=== PATIENT | female | born 1955 | race Caucasian/White ===

== ENCOUNTER 2019-01-01 02:47 | Emergency (ER) | payer SELFPAY ==
[2019-01-01 03:19] LABS: Absolute Lymphocytes (CBC) 1.3 K/uL (0.7-4.9); Absolute Monocytes 0.6 K/uL (0.1-1.3); Absolute Neutrophil 5.5 K/uL (1.8-8.0); Basophils % 0.5 % (0-1.3); Eosinophils % 3.7 % (0-4.4); Hematocrit 38.1 % (36.0-45.0); MPV 8.8 fL (7.6-11.3); Monocytes % 7.3 % (3.3-12.3); RBC Red Blood Cell Count 4.18 M/uL (3.86-4.86)
[2019-01-01] MEDS ORDERED: LIDOCAINE VISCOUS 2% SOLN 15 ML UDC ONE (03:23)
[2019-01-01] MEDS ORDERED: MAGNE/ALUM HYDROXD 30 ML UCUP ONE (03:23)
[2019-01-01 03:46] LABS: Albumin 3.6 g/dL (3.4-5.0); Bilirubin Direct 0.3 mg/dL (0-0.2); Bilirubin Total 0.5 mg/dL (0.2-1.0); Potassium 3.7 mmol/L (3.5-5.1); Protein, Total 7.1 g/dL (6.4-8.2)
[2019-01-01] MEDS ORDERED: NA CHLORIDE 0.9% 1,000 ML ONE (04:38)
[2019-01-01] MEDS ORDERED: PIPER/TAZO/NS 3.375gm 3.375 GM/100 ML BAG ONE (04:45)
--- NOTE | 2019-01-01 07:28 | ER ---
Nurse's Notes [facility] Name: Destiny Gant Age: 63 yrs Sex: Female : 1955 Arrival Date: 01/01/2019 Time: 02:49 Bed 5 Private MD: Diagnosis: Abdominal and pelvic pain Presentation: 01/01 02:51 Presenting complaint: Patient states: epigastric pain that radiates to upper back since tl2 yesterday morning. Reports two episodes of vomiting SHAPER HAND, denies nausea at this time. Transition of care: patient was not received from another setting of care. Onset of symptoms was December 30, 2018. Risk Assessment: Do you want to hurt yourself or someone else? Patient reports no desire to harm self or others. Initial Sepsis Screen: Does the patient meet any 2 criteria? No. Patient's initial sepsis screen is negative. Does the patient have a suspected source of infection? No. Patient's initial sepsis screen is negative. Care prior to arrival: None. 02:51 Method Of Arrival: EMS: [facility] tl2 02:51 Acuity: PHILIP 3 tl2 Triage Assessment: 02:53 General: Appears in no apparent distress. uncomfortable, Behavior is calm, cooperative, tl2 appropriate for age. Pain: Complains of pain in epigastric area, right upper quadrant and left upper quadrant Pain radiates to left subscapular area and right subscapular area Pain currently is 10 out of 10 on a pain scale. Quality of pain is described as stabbing, Is continuous. Neuro: Level of Consciousness is awake, alert, obeys commands, Oriented to person, place, time, situation. Cardiovascular: Denies chest pain. Respiratory: Airway is patent Respiratory effort is even, unlabored, Respiratory pattern is regular, symmetrical. GI: Abdomen is non-distended, Reports vomiting, Patient currently denies diarrhea, nausea. : No signs and/or symptoms were reported regarding the genitourinary system. Derm: Skin is pink, warm \T\ dry. Historical: - Allergies: 02:53 No Known Allergies; tl2 - Home Meds: 02:53 clonazepam 1 mg oral tab 1 tab 2 times per day [Active]; tl2 - PMHx: 02:53 Depression; tl2 - PSHx: 02:53 Hysterectomy; Tubal ligation; tl2 - Immunization history:: Adult Immunizations up to date. - Social history:: Smoking status: Patient/guardian denies using tobacco. - Ebola Screening: : No symptoms or risks identified at this time. Screenin:56 Abuse screen: Denies threats or abuse. Nutritional screening: No deficits noted. tl2 Tuberculosis screening: No symptoms or risk factors identified. Fall Risk None identified. Assessment: 02:56 General: see triage assessment. tl2 03:30 Reassessment: Patient appears in no apparent distress at this time. Patient and/or tl2 family updated on plan of care and expected duration. Pain level reassessed. Patient is alert, oriented x 3, equal unlabored respirations, skin warm/dry/pink. 04:48 Reassessment: Patient appears in no apparent distress at this time. Patient and/or tl2 family updated on plan of care and expected duration. Pain level reassessed. Patient is alert, oriented x 3, equal unlabored respirations, skin warm/dry/pink. pt returned from CT, awaiting results. Pt resting comfortably, no questions or concerns at this time. Fluids and antibiotic infusing. 05:10 Reassessment: Patient appears in no apparent distress at this time. Patient and/or cc3 family updated on plan of care and expected duration. Pain level reassessed. Patient is alert, oriented x 3, equal unlabored respirations, skin warm/dry/pink. Received this female patient from [facility] Gal[facility] as a case of abdominal pain, with IV cannula gauge 22 with ongoing IV fluid of NS 1 liter bolus and IV antibiotic of Zosyn 3.375 grams infusing well. 05:10 GI: Bowel sounds present X 4 quads. Abd is soft X 4 quads Abdomen is tender to cc3 palpation in epigastric area. 05:45 Reassessment: Dr. Dalal at bedside assessing the patient. cc3 06:19 Reassessment: Patient appears in no apparent distress at this time. Patient and/or cc3 family updated on plan of care and expected duration. Pain level reassessed. Patient is alert, oriented x 3, equal unlabored respirations, skin warm/dry/pink. 06:55 Reassessment: Patient appears in no apparent distress at this time. Patient and/or cc3 family updated on plan of care and expected duration. Pain level reassessed. Patient is alert, oriented x 3, equal unlabored respirations, skin warm/dry/pink. Troponin taken and sent to lab as ordered. 07:36 Reassessment: Patient appears in no apparent distress at this time. Patient and/or ph family updated on plan of care and expected duration. Pain level reassessed. Patient is alert, oriented x 3, equal unlabored respirations, skin warm/dry/pink. US at bedside for study of abdomen, pt tolerating well, report called to Lesly RENDON at [facility], awaiting US results and EMS for transport. 08:44 Reassessment: Patient appears in no apparent distress at this time. Patient and/or ph family updated on plan of care and expected duration. Pain level reassessed. Patient is alert, oriented x 3, equal unlabored respirations, skin warm/dry/pink. Pt resting quietly, denies nausea and rates pain 3/10 after IV medications, daughter at bedside, awaiting EMS for transfer. 09:19 Reassessment: Patient appears in no apparent distress at this time. Patient and/or ph family updated on plan of care and expected duration. Pain level reassessed. Patient is alert, oriented x 3, equal unlabored respirations, skin warm/dry/pink. Report given to [facility], pt transferred to [facility]. Vital Signs: 02:53 BP 157 / 91; Pulse 82; Resp 18; Temp 98.5(O); Pulse Ox 99% on R/A; Weight 78.47 kg; tl2 Height 5 ft. 6 in. (167.64 cm); Pain 10/10; 04:32 BP 136 / 87; Pulse 76; Resp 18; Pulse Ox 99% on R/A; tl2 05:10 BP 149 / 94; Pulse 84; Resp 17 S; Pulse Ox 100% on R/A; cc3 05:40 BP 138 / 74; Pulse 75; Resp 17 S; Pulse Ox 100% on R/A; cc3 06:06 BP 141 / 86; Pulse 73; Resp 18 S; Pulse Ox 100% on R/A; cc3 07:17 BP 120 / 74; Pulse 69; Resp 18; Temp 98.2; Pulse Ox 97% on R/A; ph 08:43 BP 124 / 65; Pulse 75; Resp 18; Pulse Ox 99% on R/A; ph 09:19 BP 123 / 72; Pulse 71; Resp 18; Temp 98.0; Pulse Ox 99% on R/A; ph 02:53 Body Mass Index 27.92 (78.47 kg, 167.64 cm) tl2 ED Course: 02:49 Patient arrived in ED. tl2 02:50 Liam Rader MD is Attending Physician. ps1 02:52 Triage completed. tl2 02:53 Arm band placed on right wrist. tl2 02:56 Patient has correct armband on for positive identification. Bed in low position. Call tl2 light in reach. Side rails up X 1. 03:05 eLonor Montaño, JUSTICE is Primary Nurse. tl2 03:05 Inserted saline lock: 22 gauge in right antecubital area, using aseptic technique. tl2 Blood collected. 03:20 Radiology exam delayed due to lab results not completed at this time. (BUN/Creatinine). kw1 03:40 Radiology exam delayed due to lab results not completed at this time. (BUN/Creatinine). eh 04:30 Lactate Sent. tl2 04:34 CT Abd/Pelvis - W/Contrast In Process Unspecified. EDMS 07:00 Report given to [facility]ICE Day and [facility] Fuentes. cc3 07:28 Ultrasound completed. Patient tolerated well. sg3 08:43 No provider procedures requiring assistance completed. Patient transferred, IV remains ph in place. Administered Medications: 03:14 Drug: GI Cocktail without - (Maalox Suspension 30 ml, Lidocaine Liquid 2 % 15 tl2 ml) Route: PO; 04:00 Follow up: Response: No adverse reaction; Pain is unchanged, physician notified tl2 04:30 Drug: NS 0.9% 1000 ml Route: IV; Rate: 1 bolus; Site: right antecubital; tl2 05:45 Follow up: Response: No adverse reaction; IV Status: Completed infusion; IV Intake: cc3 1000ml 04:45 Drug: Zosyn 3.375 grams Route: IVPB; Infused Over: 60 mins; Site: right antecubital; tl2 05:42 Follow up: Response: No adverse reaction; IV Status: Completed infusion; IV Intake: cc3 100ml 08:20 Drug: morphine 4 mg Route: IVP; Site: right antecubital; ph 08:40 Follow up: Response: No adverse reaction ph 08:20 Drug: Zofran 4 mg Route: IVP; Site: right antecubital; ph 08:40 Follow up: Response: No adverse reaction ph Intake: 05:42 IV: 100ml; Total: 100ml. cc3 05:45 IV: 1000ml; Total: 1100ml. cc3 Outcome: 07:27 ER care complete, transfer ordered by . kdr 09:19 Transferred by ground EMS . to [facility], Transfer form ph completed. X-rays sent w/ patient. 09:19 Condition: stable 09:19 Instructed on the need for transfer. 09:20 Patient left the ED. ph Signatures: Dispatcher [employer] EDMS Jayden Segura MD MD kdr Hagler, Ervin eh Hall, Patricia, RN RN Leonor Whitley RN RN tl2 Liam Rader MD MD [facility] Sharron Wong1 Claudia Arthur 3 Radha Boland cc3 Corrections: (The following items were deleted from the chart) 05:58 05:10 Reassessment: Patient appears in no apparent distress at this time. Patient cc3 and/or family updated on plan of care and expected duration. Pain level reassessed. Patient is alert, oriented x 3, equal unlabored respirations, skin warm/dry/pink. Received this female patient from [facility] as a case of abdominal pain, with IV cannula gauge cc3 06:03 05:10 Reassessment: Patient appears in no apparent distress at this time. Patient cc3 and/or family updated on plan of care and expected duration. Pain level reassessed. Patient is alert, oriented x 3, equal unlabored respirations, skin warm/dry/pink. Received this female patient from [facility] as a case of abdominal pain, with IV cannula gauge 22 with ongoing IV fluid of NS 1 liter bolus and IV antibiotic of Tazocin 3.75 g infusing well. cc3
--- NOTE | 2019-01-01 07:28 | EDPHYS ---
Physician Documentation [facility] Name: Destiny Gant Age: 63 yrs Sex: Female : 1955 Arrival Date: 01/01/2019 Time: 02:49 Bed 5 Private MD: ED Physician Liam Rader HPI: 01/01 03:20 This 63 yrs old Female presents to ER via EMS with complaints of Abdominal ps1 Pain. 03:20 patient BIBEMS for epigastric abdominal pain that radiates to her back. Paitent rates ps1 pain as severe. No remitting factors. Onset 2 days ago. Not associated with food. No chest pain. No diaphoresis. No history of same. Hx of depression. . Historical: - Allergies: 02:53 No Known Allergies; tl2 - Home Meds: 02:53 clonazepam 1 mg oral tab 1 tab 2 times per day [Active]; tl2 - PMHx: 02:53 Depression; tl2 - PSHx: 02:53 Hysterectomy; Tubal ligation; tl2 - Immunization history:: Adult Immunizations up to date. - Social history:: Smoking status: Patient/guardian denies using tobacco. - Ebola Screening: : No symptoms or risks identified at this time. ROS: 03:20 Constitutional: Negative for fever, chills, and weight loss, Eyes: Negative for injury, ps1 pain, redness, and discharge, Cardiovascular: Negative for chest pain, palpitations, and edema, Respiratory: Negative for shortness of breath, cough, wheezing, and pleuritic chest pain, : Negative for injury, bleeding, discharge, and swelling, MS/Extremity: Negative for injury and deformity, Skin: Negative for injury, rash, and discoloration, Neuro: Negative for headache, weakness, numbness, tingling, and seizure. 03:20 Abdomen/GI: Positive for abdominal pain, nausea. Exam: 03:20 Constitutional: This is a well developed, well nourished patient who is awake, alert, ps1 and in no acute distress. Head/Face: Normocephalic, atraumatic. Eyes: Pupils equal round and reactive to light, extra-ocular motions intact. Lids and lashes normal. Conjunctiva and sclera are non-icteric and not injected. Chest/axilla: Normal chest wall appearance and motion. Nontender with no deformity. No lesions are appreciated. Cardiovascular: Regular rate and rhythm. No gallops, murmurs, or rubs. Normal PMI, no JVD. No pulse deficits. Respiratory: Lungs have equal breath sounds bilaterally, clear to auscultation and percussion. No rales, rhonchi or wheezes noted. No increased work of breathing, no retractions or nasal flaring. Skin: Warm, dry with normal turgor. Normal color with no rashes, no lesions, and no evidence of cellulitis. MS/ Extremity: Pulses equal, no cyanosis. Neurovascular intact. Full, normal range of motion. Neuro: Awake and alert, GCS 15, oriented to person, place, time, and situation. Cranial nerves II-XII grossly intact. Sensory grossly intact. Psych: Awake, alert, with orientation to person, place and time. Behavior, mood, and affect are within normal limits. 03:20 Abdomen/GI: Inspection: abdomen appears normal, Bowel sounds: normal, Palpation: moderate abdominal tenderness, in the epigastric area. Vital Signs: 02:53 BP 157 / 91; Pulse 82; Resp 18; Temp 98.5(O); Pulse Ox 99% on R/A; Weight 78.47 kg; tl2 Height 5 ft. 6 in. (167.64 cm); Pain 10/10; 04:32 BP 136 / 87; Pulse 76; Resp 18; Pulse Ox 99% on R/A; tl2 05:10 BP 149 / 94; Pulse 84; Resp 17 S; Pulse Ox 100% on R/A; cc3 05:40 BP 138 / 74; Pulse 75; Resp 17 S; Pulse Ox 100% on R/A; cc3 06:06 BP 141 / 86; Pulse 73; Resp 18 S; Pulse Ox 100% on R/A; cc3 07:17 BP 120 / 74; Pulse 69; Resp 18; Temp 98.2; Pulse Ox 97% on R/A; ph 08:43 BP 124 / 65; Pulse 75; Resp 18; Pulse Ox 99% on R/A; ph 09:19 BP 123 / 72; Pulse 71; Resp 18; Temp 98.0; Pulse Ox 99% on R/A; ph 02:53 Body Mass Index 27.92 (78.47 kg, 167.64 cm) tl2 MDM: 03:27 Patient medically screened. ps1 06:24 Data reviewed: vital signs, nurses notes, lab test result(s), radiologic studies, CT ps1 scan, and as a result, I will transfer patient for ERCP and cholecystectomy. . 01/01 02:50 Order name: Basic Metabolic Panel; Complete Time: 04:06 tl2 01/01 02:50 Order name: CBC with Diff; Complete Time: 04:06 tl2 01/01 02:50 Order name: Creatinine for Radiology; Complete Time: 04:06 tl2 01/01 02:50 Order name: Hepatic Function; Complete Time: 04:06 tl2 01/01 02:50 Order name: Lipase; Complete Time: 04:06 tl2 01/01 04:12 Order name: Lactate ps1 01/01 02:50 Order name: CT Abd/Pelvis - W/Contrast tl2 01/01 04:12 Order name: Lactate; Complete Time: 06:16 EDMS 01/01 06:03 Order name: Abdomen Exam Limited; Complete Time: 15:17 EDMS 01/01 06:46 Order name: Troponin (emerg Dept Use Only) ps1 01/01 07:37 Order name: Troponin (Emerg Dept Use Only); Complete Time: 07:58 EDMS 01/01 02:50 Order name: IV Saline Lock; Complete Time: 03:06 tl2 01/01 02:50 Order name: Labs collected and sent; Complete Time: 03:06 tl2 01/01 03:25 Order name: EKG - Nurse/Tech; Complete Time: 03:36 ps1 01/01 04:10 Order name: NPO; Complete Time: 04:30 ps1 EC:36 Rate is 72 beats/min. Rhythm is regular. QRS [place] is Normal. [place] interval is normal. QRS ps1 interval is normal. QT interval is normal. No Q waves. T waves are Inverted in leads V2, V3, V4, V5. Clinical impression: NSR w/ Non-specific ST/T Changes. Interpreted by me. Administered Medications: 03:14 Drug: GI Cocktail without - (Maalox Suspension 30 ml, Lidocaine Liquid 2 % 15 tl2 ml) Route: PO; 04:00 Follow up: Response: No adverse reaction; Pain is unchanged, physician notified tl2 04:30 Drug: NS 0.9% 1000 ml Route: IV; Rate: 1 bolus; Site: right antecubital; tl2 05:45 Follow up: Response: No adverse reaction; IV Status: Completed infusion; IV Intake: cc3 1000ml 04:45 Drug: Zosyn 3.375 grams Route: IVPB; Infused Over: 60 mins; Site: right antecubital; tl2 05:42 Follow up: Response: No adverse reaction; IV Status: Completed infusion; IV Intake: cc3 100ml 08:20 Drug: morphine 4 mg Route: IVP; Site: right antecubital; ph 08:40 Follow up: Response: No adverse reaction ph 08:20 Drug: Zofran 4 mg Route: IVP; Site: right antecubital; ph 08:40 Follow up: Response: No adverse reaction ph Disposition: 01/01/19 07:27 Transfer ordered to [facility]. Diagnosis is Abdominal and pelvic pain. - Reason for transfer: Higher level of care. - Accepting physician is Dr. Andres. - Condition is Fair. - Problem is new. - Symptoms have improved. Signatures: Dispatcher [employer] EDMS Jayden Segura MD MD kdr Gina Prater RN RN ph Leonor Montaño RN RN tl2 Liam Rader MD MD [facility] Radha Boland cc3 Corrections: (The following items were deleted from the chart) 09:20 07:27 01/01/2019 07:27 Transfer ordered to [facility]. Diagnosis is ph Abdominal and pelvic pain. Reason for transfer: Higher level of care. Accepting physician is Dr. Andres. Condition is Fair. Problem is new. Symptoms have improved. kdr
--- NOTE | 2019-01-01 08:11 | RAD REPORT ---
EXAM DESCRIPTION: US - Abdomen Exam Limited - 01/01/2019 8:01 am CLINICAL HISTORY: Abdominal pain, right upper quadrant pain COMPARISON: CT study same date FINDINGS: Multiple variably sized mobile gallstones are identified. Gallbladder wall is mildly thick ened. No pericholecystic fluid. No common duct stone or biliary tree dilatation identified. IMPRESSION: Multi stone cholelithiasis with gallbladder wall thickening. No biliary tree abnormality.
[2019-01-01] MEDS ORDERED: MORPHINE 4 MG/ML SYR ONE ×2 (08:24→14:17)
[2019-01-01] MEDS ORDERED: ONDANSETRON 4 MG/2 ML VIAL ONE (08:24)
--- NOTE | 2019-01-03 07:50 | EKG ---
Test Date: 2019-01-01 Test Time: 03:36:13 Front End Software Engineer: KIMBERLY MEASUREMENT RESULTS: Intervals: Rate: 72 WI: 126 QRSD: 80 QT: 396 QTc: 433 [place]: P: 44 WI: 126 QRS: 7 T: -31 INTERPRETIVE STATEMENTS: Sinus rhythm with premature atrial complexes ST & T wave abnormality, consider anterolateral ischemia Abnormal ECG No previous ECG available for comparison Electronically Signed On 01-03-19 07:50:15 CDT by Didier Kay
--- NOTE | 2019-01-03 10:47 | RAD REPORT ---
EXAM DESCRIPTION: CT - Abdomen Pelvis W Contrast - 01/01/2019 5:50 am CLINICAL HISTORY: Epigastric pain radiating to upper back since yesterday morning. COMPARISON: None. TECHNIQUE: Axial [address] imaging of the abdomen and pelvis performed utilizing intravenous contrast. Reformatted coronal and sagittal images reviewed. A dose reduction technique was utilized with automated exposure control according to patient size. FINDINGS: LOWER THORAX: Minimal right lower lobe subpleural atelectasis. Heart is normal in size. ABDOMEN: LIVER/GALLBLADDER: Mild decreased hepatic attenuation due to fatty infiltration. No mass or biliary dilatation. Minimal hepatic nodularity. Gallbladder contains several noncalcified dependent stones. T here is mild gallbladder wall thickening. No adjacent edema. No biliary dilatation. SPLEEN/PANCREAS: Normal spleen. Accessory splenule inferior to the main splenic body. Normal pancrea s. KIDNEYS/ADRENAL GLANDS: Normal adrenal glands. Normal right kidney. Lateral left renal 9 mm cyst. RETROPERITONEAL VESSELS/NODES: Normal aorta and inferior vena cava caliber. No adenopathy. Mesenteri c vessels are well-opacified. BOWEL: Normal stomach. The small bowel loops are unremarkable. Normal appendix in the right lower qu adrant. Normal colon. MESENTERY/PERITONEUM: No edema. No adenopathy. No ascites. There is a very small fat-containing umbi lical hernia. PELVIS: BLADDER: Incompletely distended but otherwise normal. GENITAL ORGANS: The uterus is surgically absent. PERITONEUM: No pelvic free fluid or lymphadenopathy. BONES AND SOFT TISSUES: Normal lumbosacral alignment. Very mild degenerative endplate changes. Intac t bony pelvis. Normal hips. Lateral right inferior flank subcutaneous dystrophic calcification. Unrem arkable bony pelvis and hips. IMPRESSION: 1. Cholelithiasis with gallbladder wall thickening suggestive of early cholecystitis. Co rrelate with right upper quadrant exam. No biliary dilatation. 2. Mild cirrhosis with fatty liver change. 3. Left renal cyst. Electronically signed by: Briseyda Barker DO 01/01/2019 4:42 AM CDT Due to temporary technical issues with the PACS/Fluency reporting system, reports are being signed by the in house radiologist as a courtesy to ensure prompt reporting. The interpreting radiologist is f ully responsible for the content of the report.
== END 2019-01-01 09:20 | disposition short-term general hospital (02) ==
LOC: ER 02:47 → UNDOADMOB 05:51 → ERHOLD 05:51 → UNDODISOB 09:19
DX: R10.13 Epigastric pain (principal); R10.2 Pelvic and perineal pain; F32.9 Major depressive disorder, single episode, unspecified
CPT/HCPCS: 36415; 74177; 76705; 80048; 80076; 83605; 83690; 84484; 85025; 93005; 96365; 96375; 99285; J2405; J2543; J7030; Q9967